=== PATIENT | female | born 1960 | race Caucasian/White ===

== ENCOUNTER 2018-07-28 10:35 | Emergency (ER) | payer OTHER ==
--- NOTE | 2018-07-28 11:07 | RAD ---
RIGHT WRIST 3 VIEWS: Date: 07/28/18 HISTORY: Wrist pain. COMPARISON: None. FINDINGS: Evidence of distal ulnar fracture, which is healed. There is somewhat of an intramedullary lucency of the distal radius, which may be from prior injury. No acute displaced fracture or malalignment. IMPRESSION: 1. Old, healed distal ulnar fracture. 2. Lucency distal radial metadiaphysis. Possible dorsal cortical irregularity. MRI with and without contrast may be beneficial. CODE T. POS: MALINI
[2018-07-28] MEDS ORDERED: Ibuprofen 800 MG TAB ONE (12:39)
== END 2018-07-28 12:45 | disposition home or self-care (01) ==
LOC: ERS 10:35
DX: S52.501A Unspecified fracture of the lower end of right radius, initial encounter for closed fracture (principal); J45.909 Unspecified asthma, uncomplicated; F17.210 Nicotine dependence, cigarettes, uncomplicated; I10 Essential (primary) hypertension; Z79.899 Other long term (current) drug therapy; Z79.51 Long term (current) use of inhaled steroids; X50.1XXA Overexertion from prolonged static or awkward postures, initial encounter
CPT/HCPCS: 29125